=== PATIENT | male | born 1945 | race Caucasian/White ===

== ENCOUNTER 2017-02-01 13:11 | Inpatient (IN) | payer OTHER ==
[~2017-02-01] VITALS: Ht 182.9 cm; Wt 95.4 kg
[~2017-02-01 13:11] MED LIST: ALTACE10 MG PO; ASPIR-LOW81 MG PO; AVAPRO300 MG PO; CARTIA XT120 MG PO; EFFIENT10 MG PO; LOPRESSOR25 MG PO; LOPRESSOR50 MG PO; NITROSTAT0.4 MG SL; PERCOCET 5/31 TABLET PO; PRAVASTATIN SOD80 MG PO; VITAMIN D32000 UNIT PO; ZOCOR40 MG PO
[2017-02-01 13:29] LABS: HEMATOCRIT 44.8 % (38.0-50.0); MCHC 33.7 G/DL (30.0-36.0); MCV 94.9 FL (86-99); MEAN PLAT.VOLUME 10.5 uM^3 (9.0-12.4); PLATELET COUNT 204 K/uL (156-360); RBC DIS.WIDTH-CV 12.9 % (11.8-14.6); RBC DIS.WIDTH-SD 44.8 % (39-53); RED BLOOD COUNT 4.72 M/uL (4.00-5.50); WHITE BLOOD COUNT 7.7 K/uL (4.1-10.2)
[2017-02-01 13:38] LABS: CHLORIDE 105 mEq/L (99-109); POTASSIUM 4.3 mEq/L (3.7-5.4); SODIUM 136 mEq/L (136-147)
[2017-02-01 13:40] LABS: PTT 27.9 (25-32)
[2017-02-01 13:41] LABS: GLUCOSE 125 mg/dL (70-99)
[2017-02-01 13:42] LABS: ANION GAP 7 MEQ/L (2-14)
[2017-02-01 13:43] LABS: TOTAL BILIRUBIN 0.5 mg/dL (0.0-1.0)
[2017-02-01 13:44] LABS: ALKALINE PHOSPHATASE 34 IU/L (3-129); GFR ESTIMATE (CALCULATED) > 59 mL/min/
[2017-02-01 13:45] LABS: UREA NITROGEN (BUN) 17 mg/dL (9-23)
[2017-02-01 13:50] LABS: TROP-I INTERPRETATION NEGATIVE; TROPONIN-I 0.02 ng/mL (0.0-0.30)
[2017-02-01] MEDS ORDERED: SIMVASTATIN40 MG PO (15:12)
[2017-02-01] MEDS ORDERED: LO-DOSE ASPIRIN81 M2 PO (15:13)
[2017-02-01 15:16] LABS: TROP-I INTERPRETATION NEGATIVE; TROPONIN-I 0.01 ng/mL (0.0-0.30)
[2017-02-01 21:18] LABS: TROP-I INTERPRETATION POSITIVE; TROPONIN-I 0.63 ng/mL (0.0-0.30)
[2017-02-01 22:08] VITALS: BP 187/95
[2017-02-01] MEDS ORDERED: VITAMIN B-6100 MG PO (22:35)
[2017-02-02 00:53] LABS: TROP-I INTERPRETATION POSITIVE; TROPONIN-I 3.62 ng/mL (0.0-0.30)
[2017-02-02 04:01] VITALS: BP 175/88
[2017-02-02 06:39] LABS: BASOPHIL COUNT 0.1 K/uL (0-0.1); EOSINOPHIL (%) 1.6 % (0-5); EOSINOPHIL COUNT 0.2 K/uL (0-0.3); HEMATOCRIT 45.9 % (38.0-50.0); IMMATURE GRANULOCYTE (%) 0.3 % (0.0-0.7); INSTRUMENT ABS NEUTROPHIL CT 7.1 K/uL; LYMPHOCYTE COUNT 2.1 K/uL (1.0-2.8); MCH 31.6 PG (29.0-34.0); MCHC 33.1 G/DL (30.0-36.0); MCV 95.4 FL (86-99); MONOCYTE (%) 7.7 % (3-12); MONOCYTE COUNT 0.8 K/uL (0-0.8); NEUTROPHIL (%) 69.2 % (45-76); NEUTROPHIL COUNT 7.1 K/uL (1.8-6.4); PLATELET COUNT 197 K/uL (156-360); RBC DIS.WIDTH-CV 13.1 % (11.8-14.6); RBC DIS.WIDTH-SD 45.9 % (39-53); RED BLOOD COUNT 4.81 M/uL (4.00-5.50)
[2017-02-02 06:44] LABS: WHITE BLOOD COUNT 10.3 K/uL (4.1-10.2)
[2017-02-02 06:55] LABS: ANION GAP 9 MEQ/L (2-14); CHLORIDE 104 MEQ/L (99-109); GFR ESTIMATE (CALCULATED) > 59 mL/min/; GLUCOSE 112 mg/dL (70-99); SAMPLE HEMOLYSIS CHECK 0; SAMPLE ICTERIC CHECK 0; SAMPLE LIPEMIA CHECK 0; SODIUM 138 MEQ/L (136-147); UREA NITROGEN (BUN) 12 mg/dL (9-23)
[2017-02-02 06:58] LABS: TROP-I INTERPRETATION POSITIVE; TROPONIN-I 12.91 ng/mL (0.0-0.30)
[2017-02-02 07:55] VITALS: BP 155/96
[2017-02-02 12:11] VITALS: BP 144/85
[2017-02-02 13:24] LABS: TROPONIN-I 13.87 ng/mL (0.0-0.30)
[2017-02-02 13:25] LABS: TROP-I INTERPRETATION POSITIVE
[2017-02-02] MEDS ORDERED: EFFIENT10 MG PO (14:03)
[2017-02-02] MEDS ORDERED: VITAMIN D2000 UNIT PO (14:04)
[2017-02-02 16:17] VITALS: BP 148/72
== END 2017-02-02 19:01 | disposition home or self-care (01) | DRG 247 ==
LOC: EME 13:11 → CATH 15:05 → 2SOUTH 18:56 → 4EAST 18:56
PROVIDERS: Emergency Medicine; Internal Medicine Cardiovascular Disease
DX: I21.4 Non-ST elevation (NSTEMI) myocardial infarction (principal); I25.10 Atherosclerotic heart disease of native coronary artery without angina pectoris; I25.810 Atherosclerosis of coronary artery bypass graft(s) without angina pectoris; T82.858A Stenosis of other vascular prosthetic devices, implants and grafts, initial encounter; I25.5 Ischemic cardiomyopathy; I10 Essential (primary) hypertension; E78.5 Hyperlipidemia, unspecified; E88.81 Metabolic syndrome and other insulin resistance; Z87.891 Personal history of nicotine dependence; I25.2 Old myocardial infarction; R00.1 Bradycardia, unspecified; I44.0 Atrioventricular block, first degree
CPT/HCPCS: 71020; 80048; 80053; 84484; 85025; 85027; 85347; 85610; 85730; 93005; 93306; 99281; 99285; C1725; C1760; C1769; C1874; C1887; C1894; J1644; J2250; J3010; J7030

== ENCOUNTER → 2017-08-30 | Outpatient (CLI) | payer OTHER ==
[~2017-08-30] VITALS: Ht 185.4 cm; Wt 90.7 kg
[~2017-08-30] MED LIST changes: +LIPITOR40 MG PO; +LO-DOSE ASPIRIN81 M2 PO; +VITAMIN B-6100 MG PO; +VITAMIN D2000 UNIT PO
== END | disposition home or self-care (01) ==
LOC: AMB 10:15 → OPR 12:30 → AMB 13:15
DX: C15.9 Malignant neoplasm of esophagus, unspecified (principal); I25.10 Atherosclerotic heart disease of native coronary artery without angina pectoris; I10 Essential (primary) hypertension; E78.2 Mixed hyperlipidemia; E66.9 Obesity, unspecified; Z68.31 Body mass index [BMI] 31.0-31.9, adult; Z87.891 Personal history of nicotine dependence; I25.2 Old myocardial infarction; Z95.1 Presence of aortocoronary bypass graft; Z95.5 Presence of coronary angioplasty implant and graft; Z79.82 Long term (current) use of aspirin; Z79.02 Long term (current) use of antithrombotics/antiplatelets; Z88.0 Allergy status to penicillin
CPT/HCPCS: J0330; J1100; J2405; J3010